=== PATIENT | female | born 1980 | race Caucasian/White ===

== ENCOUNTER 2016-11-21 04:37 | Emergency (ER) | payer MEDICAID ==
[2016-11-21] MEDS ORDERED: Ibuprofen 400 MG TAB ONE (14:52)
== END 2016-11-21 07:08 | disposition home or self-care (01) ==
LOC: ER 04:37
DX: R53.1 Weakness (principal); N39.0 Urinary tract infection, site not specified; F17.200 Nicotine dependence, unspecified, uncomplicated; G40.909 Epilepsy, unspecified, not intractable, without status epilepticus
CPT/HCPCS: 36415; 80053; 80307; 81001; 85025; 87088; 93005